=== PATIENT | female | born 2000 | race Caucasian/White ===

== ENCOUNTER 2022-10-02 11:01 | Emergency (ER) | payer OTHER ==
[~2022-10-02] VITALS: Ht 167.6 cm; Wt 90.8 kg
[2022-10-02] MEDS ORDERED: MINIPRESS2 MG PO (11:11)
[2022-10-02] MEDS ORDERED: LAMICTAL150 MG PO (11:12)
[2022-10-02] MEDS ORDERED: CYMBALTA60 MG PO (11:12)
[2022-10-02] MEDS ORDERED: TRAZODONE HCL150 MG PO (11:12)
[2022-10-02] MEDS ORDERED: HYDROXYZINE HCL50 MG PO (11:13)
[2022-10-03] MEDS ORDERED: CONSTULOSE10 GM/15 M PO (15:21)
== END 2022-10-02 12:57 | disposition home or self-care (01) ==
LOC: ED 11:01
DX: R60.0 Localized edema (principal); Z79.899 Other long term (current) drug therapy
CPT/HCPCS: 36415; 71045; 74177; 80053; 81003; 84703; 85025; 85610; 93971; 99284-25

== ENCOUNTER 2022-10-03 13:10 | Emergency (ER) | payer OTHER ==
[~2022-10-03] VITALS: Ht 167.6 cm; Wt 90.7 kg
[~2022-10-03 13:10] MED LIST: CYMBALTA60 MG PO; HYDROXYZINE HCL50 MG PO; LAMICTAL150 MG PO; MINIPRESS2 MG PO; TRAZODONE HCL150 MG PO
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
[2022-10-03] MEDS ORDERED: CONSTULOSE10 GM/15 M PO (15:21)
== END 2022-10-03 15:30 | disposition home or self-care (01) ==
LOC: ED 13:10
DX: K59.00 Constipation, unspecified (principal); Z79.899 Other long term (current) drug therapy
CPT/HCPCS: 99283

== ENCOUNTER 2022-11-11 08:38 | Emergency (ER) | payer OTHER ==
[~2022-11-11] VITALS: Ht 167.6 cm; Wt 90.9 kg
[~2022-11-11 08:38] MED LIST changes: +CONSTULOSE10 GM/15 M PO
[2022-11-12] MEDS ORDERED: METHADOSE40 MG PO (18:01)
[2022-11-12] MEDS ORDERED: CYCLOBENZAPRINE10 MG PO (21:31)
== END 2022-11-11 09:35 | disposition home or self-care (01) ==
LOC: ED 08:38
DX: M54.12 Radiculopathy, cervical region (principal); Z79.899 Other long term (current) drug therapy
CPT/HCPCS: 99283

== ENCOUNTER 2022-11-12 14:34 | Emergency (ER) | payer OTHER ==
[~2022-11-12] VITALS: Ht 167.6 cm; Wt 90.3 kg
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
[2022-11-12] MEDS ORDERED: METHADOSE40 MG PO (18:01)
[2022-11-12] MEDS ORDERED: CYCLOBENZAPRINE10 MG PO (21:31)
== END 2022-11-12 21:38 | disposition home or self-care (01) ==
LOC: ED 14:34
DX: S10.93XA Contusion of unspecified part of neck, initial encounter (principal); V49.9XXA Car occupant (driver) (passenger) injured in unspecified traffic accident, initial encounter; Z79.899 Other long term (current) drug therapy
CPT/HCPCS: 36415; 71260; 72125; 74177; 80053; 81003; 84703; 85025; 99284-25; A9270; Q9967

== ENCOUNTER 2023-08-19 14:45 | Emergency (ER) | payer OTHER ==
[~2023-08-19] VITALS: Ht 167.6 cm; Wt 88.4 kg
[~2023-08-19 14:45] MED LIST changes: +CYCLOBENZAPRINE10 MG PO; +METHADOSE40 MG PO
[2023-08-19] MEDS ORDERED: METHADONE HCL40 MG PO (18:41)
[2023-08-19 19:17] LABS: BASOPHILS 0.3 % (0-2); BILIRUBIN, URINE POSITIVE (negative); BLOOD/HGB, URINE LARGE (Negative); EOSINOPHILS 1.1 % (0-6); HEMATOCRIT 38.5 % (35.0-50.0); HEMOGLOBIN 13.2 g/dL (12.0-18.0); KETONE, URINE TRACE (Negative); LEUK ESTERASE, URINE NEGATIVE (negative); LYMPHOCYTES 30.5 % (24-44); MCH 31.6 (27-36); MCHC 34.4 g/dl (30-36); MCV 91.8 fl (81-99); MONOCYTES 8.4 % (0-12); NEUTROPHILS 59.7 % (39-80); NITRITE, URINE NEGATIVE (negative); PH, URINE 5.5 (5-7); PLATELET COUNT 336 K/uL (140-440); RBC 4.19 M/ul (4.3-5.7); RDW 12.9 (10.5-15.0)
[2023-08-19 19:28] LABS: CRYSTALS, URINE CALCIUM OXALATE 2+ (0-1+); EPITHELIAL CELLS, URINE SQUAMOUS 2+ /lpf (0-1+)
[2023-08-19 19:29] LABS: BACTERIA, URINE 1+ /hpf (negative); CASTS, URINE NONE SEEN \\lpf; COLLECTION TYPE, URINE CLEAN CATCH; REFLEX CULTURE, URINE No (No)
[2023-08-19 19:30] LABS: ALBUMIN/GLOBULIN RATIO 1.14 (1.1-2.4); ANION GAP 11.6 (7-21); BILIRUBIN, TOTAL 0.4 ng/dL (0.2-1.0); BUN/CREATININE RATIO 12.85 (6.0-28.6); CALCIUM 8.8 mg/dL (8.5-10.1); CREATININE, SERUM 0.7 mg/dL (0.55-1.02); MAGNESIUM 1.9 mg/dL (1.8-2.4); POTASSIUM 3.6 mmol/L (3.5-5.1); PROTEIN, TOTAL 7.5 g/dL (6.4-8.2)
[2023-08-19 21:39] VITALS: BP 111/77
== END 2023-08-19 21:39 | disposition home or self-care (01) ==
LOC: ED 14:45
PROVIDERS: Emergency Medicine
DX: E86.0 Dehydration (principal); R10.9 Unspecified abdominal pain; Z79.899 Other long term (current) drug therapy
CPT/HCPCS: 36415; 80053; 81001; 83690; 83735; 84703; 85025; 96361; 96374; 99284-25; J2405; J7030